=== PATIENT | female | born 1985 | race African-American/Black ===

== ENCOUNTER 2023-07-29 12:06 | Emergency (ER) | payer SELFPAY ==
[2023-07-29 12:18] VITALS: BMI 29.8
[2023-07-29] MEDS ORDERED: ACETAMINOPHEN 1000 MG/100 ML BAG IVPB ONE (13:57)
[2023-07-29] MEDS ORDERED: ACETAMINOPHEN INJECTION 100 ML IVPB ONE (14:22)
[2023-07-29 14:32] LABS: BASO % 1.4 % (0-2.0); EOS % 2.1 % (0-4.5); HEMATOCRIT 38.6 % (32.4-45.2); HEMOGLOBIN 12.8 GM/dL (10.7-15.3); LYMPH % 45.9 % (8-40); MCH 29.6 pg (25.7-33.7); MCHC 33.1 g/dl (32.0-36.0); MEAN CELL VOLUME 89.4 fl (80-96); MEAN PLT VOLUME 7.4 fl (7.5-11.1); MONO % 5.4 % (3.8-10.2); NEUT % 45.2 % (42.8-82.8); PLATELET COUNT 261 10^3/uL (134-434); RBC 4.32 M/mm3 (3.60-5.2); RDW 13.6 % (11.6-15.6)
[2023-07-29 14:35] LABS: INR 1.13 (0.83-1.09); PROTHROMBIN TIME (PATIENT) 13.1 SEC (9.7-13.0)
[2023-07-29 14:38] LABS: ACTIVATED PTT 35.3 SECONDS (25.2-36.5)
[2023-07-29 14:47] LABS: CHLORIDE 108 mmol/L (98-107); POTASSIUM 3.9 mmol/L (3.5-5.1); SODIUM 139 mmol/L (136-145)
[2023-07-29 14:50] LABS: ALBUMIN 3.7 g/dl (3.4-5.0); ANION GAP 6 mmol/L (4-13); BLOOD UREA NITROGEN 9.4 mg/dL (7-18); CO2 25 mmol/L (21-32); GLUCOSE,RANDOM 90 mg/dL (74-106)
[2023-07-29 14:53] LABS: CREATININE 0.7 mg/dL (0.55-1.3); SGOT/AST 13 U/L (15-37); SGPT/ALT 17 U/L (13-61)
[2023-07-29 14:55] LABS: BILIRUBIN,TOTAL 0.4 mg/dL (0.2-1)
[2023-07-29 14:56] LABS: ALK PHOS 62 U/L (45-117)
[2023-07-29] MEDS ORDERED: KETOROLAC TROMETHAMINE 30 MG/1 ML VIAL IVPUSH ONE (15:39)
[2023-07-29 16:53] VITALS: BP 118/76; PULSE 70; RESP 20; TEMP 97.6
[2023-07-29] MEDS ORDERED: KETOROLAC TROMETHAMINE 30 MG/1 ML VIAL ONE (17:14)
== END 2023-07-29 17:25 | disposition home or self-care (01) ==
LOC: JER 12:06
PROC: 3E033NZ Introduction of Analgesics, Hypnotics, Sedatives into Peripheral Vein, Percutaneous Approach (ICD-10-PCS; principal; 2023-07-29)
PROC: 3E0333Z Introduction of Anti-inflammatory into Peripheral Vein, Percutaneous Approach (ICD-10-PCS; 2023-07-29)
DX: N64.4 Mastodynia (principal); M25.512 Pain in left shoulder
CPT/HCPCS: 36415; 80053; 84702; 85025; 85379; 85610; 85730; 93005; 93010; 99284-25; J0131

== ENCOUNTER 2023-08-25 13:56 | Emergency (ER) | payer OTHER ==
[2023-08-25 14:05] VITALS: BP 130/87; PULSE 96; RESP 18; TEMP 98.4; BMI 29.8
[2023-08-25] MEDS ORDERED: SODIUM CHLORIDE 0.9% 500 ML INFUS.BAG IV ONE (15:42)
[2023-08-25] MEDS ORDERED: ONDANSETRON 4 MG/2 ML VIAL IVPUSH ONE (15:42)
[2023-08-25] MEDS ORDERED: morphine CARPU-JECT 4 MG/1 ML DISP.SYRIN IVPUSH ONE (15:42)
[2023-08-25] MEDS ORDERED: ONDANSETRON 4 MG/2 ML VIAL ONE (17:30)
[2023-08-25] MEDS ORDERED: morphine SULFATE 4 MG/ML VIAL ONE (17:30)
[2023-08-25 18:05] LABS: BASO % 1.1 % (0-2.0); EOS % 3.3 % (0-4.5); HEMATOCRIT 39.6 % (32.4-45.2); HEMOGLOBIN 13.4 GM/dL (10.7-15.3); MCHC 33.9 g/dl (32.0-36.0); MEAN CELL VOLUME 88.3 fl (80-96); MEAN PLT VOLUME 7.4 fl (7.5-11.1); MONO % 5.5 % (3.8-10.2); NEUT % 42.1 % (42.8-82.8); PLATELET COUNT 267 10^3/uL (134-434); RBC 4.48 M/mm3 (3.60-5.2); RDW 13.5 % (11.6-15.6); WHITE BLOOD COUNT 5.9 K/mm3 (4.0-10.0)
[2023-08-25 18:29] LABS: POTASSIUM 3.9 mmol/L (3.5-5.1)
[2023-08-25 18:31] LABS: CALCIUM 9.4 mg/dL (8.5-10.1)
[2023-08-25 18:32] LABS: ALBUMIN 3.9 g/dl (3.4-5.0); BLOOD UREA NITROGEN 7.1 mg/dL (7-18)
[2023-08-25 18:35] LABS: CREATININE 0.6 mg/dL (0.55-1.3)
[2023-08-25 18:36] LABS: BILIRUBIN,TOTAL 0.3 mg/dL (0.2-1); TOT PROT 7.7 g/dl (6.4-8.2)
== END 2023-08-25 19:27 | disposition home or self-care (01) ==
LOC: JER 13:56
DX: N64.4 Mastodynia (principal)
CPT/HCPCS: 36415; 71046-TC-FY; 80053; 85025; 85379; 93971; 99285-25